=== PATIENT | female | born 1945 | race Caucasian/White ===

== ENCOUNTER 2018-10-05 16:52 | Emergency (ER) | payer OTHER, BC ==
[2018-10-05] MEDS ORDERED: NS 1,000 ML IV ONE (17:18)
[2018-10-05 17:37] LABS: PLATELET COUNT 220 10^3/uL (150-400)
[2018-10-05] MEDS ORDERED: LORazepam 2 MG/ML INJ IVP ONE (18:03)
--- NOTE | 2018-10-05 18:25 | EDPHY ---
H & P Stated Complaint: n/v/d Time Seen by Provider: 10/05/18 17:17 HPI/ROS: CHIEF COMPLAINT: Nausea, vomiting, diarrhea HISTORY OF PRESENT ILLNESS: The patient presents to the ED with 4 days of worsening nausea, vomiting and diarrhea. The patient's symptoms began on Tuesday with vomiting. Since that time she has continued to have ongoing diarrhea with occasional blood noted in the stool. She is having lower abdominal cramping. She is also having a sensation of dysuria. The patient denies any recent antibiotic use or travel outside the [place]. The patient denies any acute numbness or weakness. REVIEW OF SYSTEMS: A comprehensive 10 point review of systems is otherwise negative aside from elements mentioned in the history of present illness. Source: Patient Exam Limitations: No limitations - Personal History Current Tetanus/Diphtheria Vaccine: Yes Current Tetanus Diphtheria and Acellular Pertussis (TDAP): Yes - Medical/Surgical History Hx Asthma: No Hx Chronic Respiratory Disease: No Hx Diabetes: No Hx Cardiac Disease: No Hx Renal Disease: No Hx Cirrhosis: No Hx Alcoholism: No Hx HIV/AIDS: No Hx Splenectomy or Spleen Trauma: No Other PMH: HTN, hypothyroid, thyroidectomy, hysterectomy - Social History Smoking Status: Never smoked - Physical Exam Exam: General Appearance: Thin female, anxious Eyes: Pupils equal and round no pallor or injection ENT, Mouth: Dry mucous membranes Respiratory: There are no retractions, lungs are clear to auscultation Cardiovascular: Regular rate and rhythm Gastrointestinal: Mild tenderness to palpation bilateral lower abdomen. Neurological: A&O, normal motor function, normal sensory exam, normal cranial nerves Skin: Warm and dry, no rashes Musculoskeletal: Neck is supple nontender Extremities: symmetrical, full range of motion Psychiatric: Patient is oriented X 3, there is no agitation Constitutional: Initial Vital Signs Temperature (C) 36.4 C 10/05/18 17:01 Heart Rate 87 10/05/18 17:01 Respiratory Rate 24 H 10/05/18 17:01 Blood Pressure 122/98 H 10/05/18 17:01 O2 Sat (%) 100 10/05/18 17:01 O2 Delivery Mode Room Air Allergies/Adverse Reactions: No Known Allergies Allergy (Unverified 10/05/18 17:30) Home Medications: Medication Instructions Recorded Lisinopril 10/05/18 Simvastatin 10/05/18 Synthroid 10/05/18 Medical Decision Making ED Course/Re-evaluation: The patient presents the ED with symptoms consistent with an infectious gastroenteritis for the past 4 days. Patient had an IV established. She received 2L of normal saline. She received 0.5 mg of Ativan as she appeared quite anxious, was hyperventilating and having mild carpal pedal spasms. The patient had screening laboratory studies that demonstrate no leukocytosis, metabolic derangement or renal failure. I re-evaluated the patient at 7:00 p.m. She is feeling much better would like to be discharged home. She will be given a prescription for Zofran and advised to use Imodium. She will contact the emergency department tomorrow to check the results of her GI pathogen panel Abdominal examination is benign at discharge. Differential Diagnosis: Differential diagnosis considered includes gastroenteritis, dehydration, metabolic derangement - Data Points Laboratory Results: Laboratory Results 10/05/18 17:15 10/05/18 17:15 10/05/18 10/05/18 10/05/18 18:15 17:35 17:30 WBC RBC Hgb Hct MCV MCH MCHC RDW Plt Count MPV Neut % (Auto) Lymph % (Auto) [place] % (Auto) Eos % (Auto) Baso % (Auto) Nucleat RBC Rel Count Absolute Neuts (auto) Absolute Lymphs (auto) Absolute Monos (auto) Absolute Eos (auto) Absolute Basos (auto) Absolute Nucleated RBC Immature Gran % Immature Gran # VBG Lactic Acid 2.7 mmol/L H mmol/L (0.7-2.1) Sodium Potassium Chloride Carbon Dioxide Anion Gap BUN Creatinine Estimated GFR Glucose Calcium Total Bilirubin Conjugated Bilirubin Unconjugated Bilirubin AST ALT Alkaline Phosphatase Total Protein Albumin Urine Color PALE YELLOW Urine Appearance CLEAR Urine pH 8.0 H (5.0-7.5) Ur Specific [place] 1.002 (1.002-1.030) Urine Protein NEGATIVE (NEGATIVE) Urine Ketones TRACE H (NEGATIVE) Urine Blood NEGATIVE (NEGATIVE) Urine Nitrate NEGATIVE (NEGATIVE) Urine Bilirubin NEGATIVE (NEGATIVE) Urine Urobilinogen NEGATIVE EU EU (0.2-1.0) Ur Leukocyte Esterase NEGATIVE (NEGATIVE) Urine Glucose NEGATIVE (NEGATIVE) Nasal Influenza A PCR NEGATIVE FOR FLU A (NEGATIVE) Nasal Influenza B PCR NEGATIVE FOR FLU B (NEGATIVE) 10/05/18 10/05/18 17:15 17:15 WBC 5.72 10^3/uL 10^3/uL (3.80-9.50) RBC 4.87 10^6/uL 10^6/uL (4.18-5.33) Hgb 15.6 g/dL g/dL (12.6-16.3) Hct 46.6 % % (38.0-47.0) MCV 95.7 fL fL (81.5-99.8) MCH 32.0 pg pg (27.9-34.1) MCHC 33.5 g/dL g/dL (32.4-36.7) RDW 13.9 % % (11.5-15.2) Plt Count 220 10^3/uL 10^3/uL (150-400) MPV 11.2 fL fL (8.7-11.7) Neut % (Auto) 58.5 % % (39.3-74.2) Lymph % (Auto) 29.7 % % (15.0-45.0) [place] % (Auto) 9.6 % % (4.5-13.0) Eos % (Auto) 1.4 % % (0.6-7.6) Baso % (Auto) 0.5 % % (0.3-1.7) Nucleat RBC Rel Count 0.0 % % (0.0-0.2) Absolute Neuts (auto) 3.34 10^3/uL 10^3/uL (1.70-6.50) Absolute Lymphs (auto) 1.70 10^3/uL 10^3/uL (1.00-3.00) Absolute Monos (auto) 0.55 10^3/uL 10^3/uL (0.30-0.80) Absolute Eos (auto) 0.08 10^3/uL 10^3/uL (0.03-0.40) Absolute Basos (auto) 0.03 10^3/uL 10^3/uL (0.02-0.10) Absolute Nucleated RBC 0.00 10^3/uL 10^3/uL (0-0.01) Immature Gran % 0.3 % % (0.0-1.1) Immature Gran # 0.02 10^3/uL 10^3/uL (0.00-0.10) VBG Lactic Acid Sodium 136 mEq/L mEq/L (135-145) Potassium 3.2 mEq/L L mEq/L (3.5-5.2) Chloride 102 mEq/L mEq/L (97-110) Carbon Dioxide 22 mEq/l mEq/l (22-31) Anion Gap 12 mEq/L mEq/L (6-14) BUN 23 mg/dL mg/dL (7-23) Creatinine 1.1 mg/dL H mg/dL (0.6-1.0) Estimated GFR 49 Glucose 119 mg/dL H mg/dL (70-100) Calcium 8.9 mg/dL mg/dL (8.5-10.4) Total Bilirubin 1.9 mg/dL H mg/dL (0.1-1.4) Conjugated Bilirubin 0.2 mg/dL mg/dL (0.0-0.5) Unconjugated Bilirubin 1.7 mg/dL H mg/dL (0.0-1.1) AST 43 IU/L IU/L (14-46) ALT 44 IU/L IU/L (9-52) Alkaline Phosphatase 85 IU/L IU/L (38-126) Total Protein 7.4 g/dL g/dL (6.3-8.2) Albumin 4.3 g/dL g/dL (3.5-5.0) Urine Color Urine Appearance Urine pH Ur Specific [place] Urine Protein Urine Ketones Urine Blood Urine Nitrate Urine Bilirubin Urine Urobilinogen Ur Leukocyte Esterase Urine Glucose Nasal Influenza A PCR Nasal Influenza B PCR Medications Given: Discontinued Medications Sodium Chloride (Ns) 1,000 mls @ 0 mls/hr IV ONCE ONE; Wide Open PRN Reason: Protocol Stop: 10/05/18 17:19 Last Admin: 10/05/18 17:30 Dose: 1,000 mls Departure - Departure Disposition: Home, Routine, Self-Care Clinical Impression: Gastroenteritis Condition: Good Instructions: Gastroenteritis (ED) Additional Instructions: 1 Imodium as needed for diarrhea. 2. Contact the emergency department tomorrow to check the results of the stool test to see if antibiotics are indicated. You can call the department at [phone] 3. Please return to the ED for markedly worsening symptoms or other concerns. Referrals: RAYNE KING [Primary Care Provider] - As per Instructions
[2018-10-05 18:57] VITALS: BP 109/62
== END 2018-10-05 19:10 | disposition home or self-care (01) ==
DX: K52.9 Noninfective gastroenteritis and colitis, unspecified (principal); E86.9 Volume depletion, unspecified; I10 Essential (primary) hypertension; E03.9 Hypothyroidism, unspecified
CPT/HCPCS: 96360; 99284; J2060